=== PATIENT | male | born 1960 | race Caucasian/White ===

== ENCOUNTER 2022-05-06 21:21 | Inpatient (IN) | payer OTHER, SELFPAY ==
[~2022-05-06 21:21] MED LIST: Iopamidol 300 61% 100 ML VIAL FS ONE
[2022-05-06 21:59] LABS: #Basophils 0.1 10x3/uL (0.0-0.2); #Monocytes 0.8 10x3/uL (0.0-1.1); %Basophils 0.7 % (0.0-2.0); %Eosinophils 0.3 % (0.0-6.0); %Monocytes 6.3 % (0.0-10.0); %Neutrophils 33.5 % (40.0-75.0); Hemoglobin 15.6 g/dL (13.5-17.5); Mean Corpuscular HGB CONC 34.7 g/dL (32.0-36.0); Mean Corpuscular Hemoglobin 33.6 pg (27.0-33.0); Mean Corpuscular Volume 96.8 fl (81.2-95.1); Mean Platelet Volume 9.2 fl (7.4-10.4); Platelet Count 140 10x3/uL (150-450); RBC Distribution Width 13.5 % (11.5-14.5); Red Blood Cell (RBC) Count 4.64 10x6/uL (4.32-5.72); White Blood Cell (WBC) Count 11.8 10x3/uL (3.5-10.5)
[2022-05-06] MEDS ORDERED: Fentanyl 100 MCG/2 ML VIAL ONE (22:01)
[2022-05-06 22:08] LABS: ALT (SGPT) 71 U/L (8-55); AST (SGOT) 174 U/L (5-34); Albumin 3.7 g/dL (3.5-5.0); Alkaline Phosphatase 189 U/L (40-110); Anion Gap 22 mmol/L (10-20); BUN (Urea Nitrogen) 6 mg/dL (8.4-25.7); Calc. Creatinine Clearance 0 mL/min (70-130); Calcium 8.3 mg/dL (7.8-10.44); Carbon Dioxide 21 mmol/L (22-29); Chloride 105 mmol/L (98-107); Estimated GFR 106; Globulin 3.3 g/dL (2.4-3.5); Glucose 103 mg/dL (70-105); Lipase 33 U/L (8-78); Potassium 3.4 mmol/L (3.5-5.1); Sodium 145 mmol/L (136-145)
[2022-05-06] MEDS ORDERED: Diltiazem 125 MG/25 ML ONE (22:51)
[2022-05-06] MEDS ORDERED: Multivitamins, Adult 10 ML, Thiamine HCl 100 MG, Folic Acid 1 MG in Dextrose 5 %-0.45 %... IV ONE (23:15)
[2022-05-06] MEDS ORDERED: Ketorolac Tromethamine 30 MG/ML VIAL ONE (23:19)
[2022-05-06] MEDS ORDERED: Diltiazem 125 MG in Sodium Chloride 0.9% 100 ML IVPB SCH (23:45)
[2022-05-06] MEDS ORDERED: Lactated Ringer's 1,000 ML IV SCH (23:45)
[2022-05-06] MEDS ORDERED: Senokot S 8.6-50 MG TAB PO PRN (23:49)
[2022-05-06] MEDS ORDERED: Acetaminophen 325 MG TAB PO PRN (23:49)
[2022-05-06] MEDS ORDERED: Calcium Carbonate 500 MG ChewTAB PO PRN (23:49)
[2022-05-06] MEDS ORDERED: Guaifenesin DM 100-10/5 ML UDCUP PO PRN (23:49)
[2022-05-06] MEDS ORDERED: Morphine 4 MG/ML VIAL SLOW IVP PRN (23:53)
[2022-05-06 23:57] LABS: MDiff Complete? YES
[2022-05-06] MEDS ORDERED: Apixaban 5 MG TAB PO SCH (23:59)
[2022-05-06] MEDS ORDERED: Potassium Chloride 20 MEQ TAB PO SCH (23:59)
[2022-05-07 00:02] LABS: Band 2 % (5-11); Lymphocytes 48 % (21-51); Monocytes 4 % (0-10); Neutrophil 30 % (42-75); Reactive Lymphocytes 16 % (0-10)
[2022-05-07 00:03] LABS: Diff Comment (RBC Morph SCRN) NORMAL; Platelet Morphology Comment Appears Decreased
[2022-05-07] MEDS ORDERED: Dextrose 5 %-0.45 % NaCl 1,000 ML IV SCH (00:15)
[2022-05-07 01:04] LABS: SARS-CoV-2 NAA Rapid Test Not Detected (NotDetected)
[2022-05-07 04:48] LABS: Carbon Dioxide 23 mmol/L (22-29); Chloride 106 mmol/L (98-107); Potassium 3.3 mmol/L (3.5-5.1); Sodium 143 mmol/L (136-145)
[2022-05-07 04:49] LABS: ALT (SGPT) 53 U/L (8-55); AST (SGOT) 127 U/L (5-34); Albumin 2.9 g/dL (3.5-5.0); Alkaline Phosphatase 147 U/L (40-110); Anion Gap 17 mmol/L (10-20); BUN (Urea Nitrogen) 5 mg/dL (8.4-25.7); Bilirubin, Total 0.9 mg/dL (0.2-1.2); CK (CPK) 341 U/L (30-200); Calc. Creatinine Clearance 135 mL/min (70-130); Calcium 7.3 mg/dL (7.8-10.44); Estimated GFR 111; Globulin 2.4 g/dL (2.4-3.5); Glucose 151 mg/dL (70-105); Magnesium 1.5 mg/dL (1.6-2.6); Phosphorus 2.3 mg/dL (2.3-4.7); Protein, Total 5.3 g/dL (6.0-8.3)
[2022-05-07 05:05] LABS: #Monocytes 0.5 10x3/uL (0.0-1.1); #Neutrophils 2.2 10x3/uL (1.5-8.4); %Basophils 0.6 % (0.0-2.0); %Eosinophils 0.7 % (0.0-6.0); %Lymphocytes 48.3 % (18.0-47.0); %Monocytes 9.6 % (0.0-10.0); %Neutrophils 40.6 % (40.0-75.0); Hemoglobin 12.8 g/dL (13.5-17.5); Mean Corpuscular HGB CONC 34.8 g/dL (32.0-36.0); Mean Corpuscular Hemoglobin 34.3 pg (27.0-33.0); Mean Corpuscular Volume 98.7 fl (81.2-95.1); Mean Platelet Volume 9.3 fl (7.4-10.4); Platelet Count 87 10x3/uL (150-450); RBC Distribution Width 13.5 % (11.5-14.5); Red Blood Cell (RBC) Count 3.73 10x6/uL (4.32-5.72); White Blood Cell (WBC) Count 5.4 10x3/uL (3.5-10.5)
[2022-05-07] MEDS ORDERED: Potassium Chloride 20 MEQ TAB PO SCH (05:45)
[2022-05-07] MEDS: HYDROcodone/Acetaminophen 5/325 mg Tablet PO PRN ×2 (06:14→16:06)
[2022-05-07 08:30] LABS: Platelet Morphology Comment Appears Decreased
[2022-05-07 08:33] LABS: RBC Morphology Normal
[2022-05-07] MEDS: Thiamine 100 MG TAB PO SCH (08:47)
[2022-05-07] MEDS: Folic Acid 1 MG TAB PO SCH (08:47)
[2022-05-07] MEDS: Multivitamin W/ Minerals 1 TAB PO SCH (08:47)
[2022-05-07] MEDS: Ondansetron PF 4 MG/2 ML Vial IVP PRN ×2 (08:48→15:59)
[2022-05-07] MEDS: Apixaban 5 MG TAB PO SCH ×2 (08:54→21:11)
[2022-05-07] MEDS: Lorazepam 2 MG/ML VIAL SLOW IVP PRN (09:26)
[2022-05-07] MEDS ORDERED: Magnesium 2 GM/50 ML(in water) 2 GM in Premix Bag 1 BAG IVPB SCH (11:00)
[2022-05-07 11:24] LABS: Potassium 4.1 mmol/L (3.5-5.1)
[2022-05-07] MEDS ORDERED: Metoclopramide HCl 10 MG/2 ML VIAL IVP PRN (18:50)
[2022-05-08] MEDS: Ondansetron PF 4 MG/2 ML Vial IVP PRN (07:41)
[2022-05-08] MEDS: Thiamine 100 MG TAB PO SCH (07:42)
[2022-05-08] MEDS: Multivitamin W/ Minerals 1 TAB PO SCH (07:42)
[2022-05-08] MEDS: HYDROcodone/Acetaminophen 5/325 mg Tablet PO PRN ×2 (07:42→19:48)
[2022-05-08] MEDS: Folic Acid 1 MG TAB PO SCH (07:43)
[2022-05-08] MEDS ORDERED: FLU VACC QS2022-23(6MOS UP)/PF 60 MCG/0.5 ML SYRINGE IM ONE (09:00)
[2022-05-08 11:09] LABS: Hemoglobin 13.2 g/dL (13.5-17.5); Mean Corpuscular HGB CONC 34.7 g/dL (32.0-36.0); Mean Corpuscular Hemoglobin 34.4 pg (27.0-33.0); Mean Platelet Volume 10.1 fl (7.4-10.4); Platelet Count 59 10x3/uL (150-450); RBC Distribution Width 12.8 % (11.5-14.5); Red Blood Cell (RBC) Count 3.84 10x6/uL (4.32-5.72); White Blood Cell (WBC) Count 3.8 10x3/uL (3.5-10.5)
[2022-05-08 11:15] LABS: Anion Gap 12 mmol/L (10-20); BUN (Urea Nitrogen) 4 mg/dL (8.4-25.7); Calc. Creatinine Clearance 140 mL/min (70-130); Calcium 8.2 mg/dL (7.8-10.44); Carbon Dioxide 25 mmol/L (22-29); Chloride 105 mmol/L (98-107); Estimated GFR 109; Glucose 102 mg/dL (70-105); Magnesium 1.9 mg/dL (1.6-2.6); Potassium 4.9 mmol/L (3.5-5.1); Sodium 137 mmol/L (136-145)
[2022-05-08] MEDS: Apixaban 5 MG TAB PO SCH (12:37)
[2022-05-08] MEDS: chlordiazePOXIDE HCl 5 MG CAP PO SCH ×2 (15:24→20:59)
[2022-05-09] MEDS: Folic Acid 1 MG TAB PO SCH (09:12)
[2022-05-09] MEDS: Multivitamin W/ Minerals 1 TAB PO SCH (09:12)
[2022-05-09] MEDS: Thiamine 100 MG TAB PO SCH (09:12)
[2022-05-09] MEDS: chlordiazePOXIDE HCl 5 MG CAP PO SCH ×3 (09:12→20:25)
[2022-05-09 10:46] LABS: Mean Corpuscular HGB CONC 34.9 g/dL (32.0-36.0); Mean Corpuscular Hemoglobin 34.3 pg (27.0-33.0); Mean Corpuscular Volume 98.2 fl (81.2-95.1); Mean Platelet Volume 10.3 fl (7.4-10.4); Platelet Count 57 10x3/uL (150-450); RBC Distribution Width 12.4 % (11.5-14.5); Red Blood Cell (RBC) Count 3.79 10x6/uL (4.32-5.72); White Blood Cell (WBC) Count 3.9 10x3/uL (3.5-10.5)
[2022-05-09] MEDS: Lorazepam 2 MG/ML VIAL SLOW IVP PRN ×3 (11:10→22:45)
[2022-05-09] MEDS: HYDROcodone/Acetaminophen 5/325 mg Tablet PO PRN ×2 (12:02→20:26)
[2022-05-09] MEDS: Diltiazem 125 MG in Sodium Chloride 0.9% 100 ML IVPB SCH (13:14)
[2022-05-09] MEDS ORDERED: Digoxin 0.5 MG/2 ML AMP SLOW IVP SCH (15:00)
[2022-05-09 15:22] LABS: Anion Gap 14 mmol/L (10-20); BUN (Urea Nitrogen) 6 mg/dL (8.4-25.7); Calc. Creatinine Clearance 129 mL/min (70-130); Carbon Dioxide 24 mmol/L (22-29); Chloride 103 mmol/L (98-107); Estimated GFR 109; Potassium 3.5 mmol/L (3.5-5.1); Sodium 137 mmol/L (136-145)
[2022-05-09 15:23] LABS: Calcium 8.7 mg/dL (7.8-10.44); Glucose 127 mg/dL (70-105)
[2022-05-09] MEDS ORDERED: Potassium Chloride 20 MEQ TAB PO SCH (17:30)
[2022-05-10] MEDS: Diltiazem 125 MG in Sodium Chloride 0.9% 100 ML IVPB SCH (01:08)
[2022-05-10 04:57] VITALS: BMI 23.4
[2022-05-10 04:57] LABS: Anion Gap 15 mmol/L (10-20); BUN (Urea Nitrogen) 5 mg/dL (8.4-25.7); Calc. Creatinine Clearance 125 mL/min (70-130); Calcium 8.7 mg/dL (7.8-10.44); Carbon Dioxide 23 mmol/L (22-29); Chloride 103 mmol/L (98-107); Estimated GFR 108; Glucose 93 mg/dL (70-105); Potassium 3.8 mmol/L (3.5-5.1); Sodium 137 mmol/L (136-145)
[2022-05-10 05:00] LABS: Hemoglobin 14.7 g/dL (13.5-17.5); Mean Corpuscular HGB CONC 35.2 g/dL (32.0-36.0); Mean Corpuscular Hemoglobin 34.4 pg (27.0-33.0); Mean Corpuscular Volume 97.9 fl (81.2-95.1); Mean Platelet Volume 10.4 fl (7.4-10.4); Platelet Count 74 10x3/uL (150-450); RBC Distribution Width 12.6 % (11.5-14.5); Red Blood Cell (RBC) Count 4.27 10x6/uL (4.32-5.72); White Blood Cell (WBC) Count 5.8 10x3/uL (3.5-10.5)
[2022-05-10] MEDS: HYDROcodone/Acetaminophen 5/325 mg Tablet PO PRN (09:03)
[2022-05-10] MEDS: chlordiazePOXIDE HCl 5 MG CAP PO SCH ×3 (09:05→21:57)
[2022-05-10] MEDS: Folic Acid 1 MG TAB PO SCH (09:05)
[2022-05-10] MEDS: Thiamine 100 MG TAB PO SCH (09:05)
[2022-05-10] MEDS: Multivitamin W/ Minerals 1 TAB PO SCH (09:05)
[2022-05-10] MEDS ORDERED: Potassium Chloride 20 MEQ TAB PO SCH (09:45)
[2022-05-10] MEDS ORDERED: Spironolactone 25 MG TAB PO SCH (10:00)
[2022-05-10] MEDS ORDERED: Sotalol HCl 80 MG TAB PO SCH (10:30)
[2022-05-10] MEDS ORDERED: Rivaroxaban 2.5 MG TAB PO SCH (21:00)
[2022-05-10] MEDS: Sotalol HCl 80 MG TAB PO SCH (21:57)
[2022-05-11 06:00] LABS: Hemoglobin 14.5 g/dL (13.5-17.5); Mean Corpuscular HGB CONC 35.3 g/dL (32.0-36.0); Mean Corpuscular Hemoglobin 34.6 pg (27.0-33.0); Mean Corpuscular Volume 98.1 fl (81.2-95.1); Mean Platelet Volume 10.2 fl (7.4-10.4); Platelet Count 80 10x3/uL (150-450); RBC Distribution Width 12.8 % (11.5-14.5); Red Blood Cell (RBC) Count 4.19 10x6/uL (4.32-5.72); White Blood Cell (WBC) Count 5.4 10x3/uL (3.5-10.5)
[2022-05-11 06:09] LABS: Anion Gap 13 mmol/L (10-20); BUN (Urea Nitrogen) 7 mg/dL (8.4-25.7); Calc. Creatinine Clearance 98 mL/min (70-130); Carbon Dioxide 24 mmol/L (22-29); Chloride 105 mmol/L (98-107); Estimated GFR 103; Glucose 88 mg/dL (70-105); Potassium 4.2 mmol/L (3.5-5.1); Sodium 138 mmol/L (136-145)
[2022-05-11] MEDS: chlordiazePOXIDE HCl 5 MG CAP PO SCH ×2 (08:37→14:28)
[2022-05-11] MEDS: Thiamine 100 MG TAB PO SCH (08:38)
[2022-05-11] MEDS: Multivitamin W/ Minerals 1 TAB PO SCH (08:38)
[2022-05-11] MEDS: Sotalol HCl 80 MG TAB PO SCH (08:38)
[2022-05-11] MEDS: Folic Acid 1 MG TAB PO SCH (08:38)
[2022-05-11] MEDS ORDERED: Rivaroxaban 2.5 MG TAB PO SCH ×2 (13:00→21:00)
[2022-05-11 16:44] VITALS: BP 116/81; TEMP 98.2
== END 2022-05-11 16:20 | disposition home or self-care (01) | DRG 897 ==
LOC: CSHERS 21:21 → CSHICU 23:49 → UNDOADMIN 05-07 00:52 → CSHICU 05-07 00:52 → CSHTELE 05-08 23:57
PROVIDERS: ADMIT Student in an Organized Health Care Education/Training Program; ATTEND Hospitalist
DX: F10.139 Alcohol abuse with withdrawal, unspecified (principal); I48.21 Permanent atrial fibrillation; E87.20 Acidosis, unspecified; I85.00 Esophageal varices without bleeding; I10 Essential (primary) hypertension; F17.210 Nicotine dependence, cigarettes, uncomplicated; K44.9 Diaphragmatic hernia without obstruction or gangrene; I48.0 Paroxysmal atrial fibrillation; E87.6 Hypokalemia; F10.10 Alcohol abuse, uncomplicated; E86.0 Dehydration; E83.42 Hypomagnesemia; D69.6 Thrombocytopenia, unspecified; Z20.822 Contact with and (suspected) exposure to COVID-19; Z98.890 Other specified postprocedural states; Z91.14 Patient's other noncompliance with medication regimen
CPT/HCPCS: 36415; 70450; 71045; 71260; 80048; 80053; 80307; 82550; 83690; 83735; 84100; 84443; 84484; 85025; 85027; 93005; 93010; 93306; 94760; 94799; 96365; 96372; 96375; 96376; J1160; J1885; J2060; J2270; J2405; J2765; J3010; J3475; J3490; J7042; J7120; Q9967; U0002